=== PATIENT | male | born 1950 | race Caucasian/White ===

== ENCOUNTER 2025-05-13 13:07 | Emergency (ER) | payer MEDICARE, OTHER, SELFPAY ==
[2025-05-13 13:20] VITALS: BP 130/74
[2025-05-13 13:39] LABS: Hematocrit 43.4 % (39.0-52.0); Hemoglobin 14.5 g/dL (13.0-18.0); Mean Corp Hgb Conc. 33.4 g/dL (33.0-37.0); Mean Corpuscular Volume 93.7 fL (80.0-94.0); Nucleated Red Blood Cells % 0 % (-); Platelet Count 153 10^3/uL (130-400); Red Cell Dist. Width 13.2 % (11.5-14.5)
[2025-05-13 14:05] LABS: ALT (SGPT) 19 U/L (0-50); AST (SGOT) 24 U/L (17-59); Albumin 4.3 g/dl (3.5-5.0); Alkaline Phosphatase 81 U/L (38-126); Blood Urea Nitrogen 13 mg/dl (9-20); Calcium 9.5 mg/dl (8.4-10.2); Carbon Dioxide 29 mmol/L (22-30); Chloride 106 mmol/L (98-107); Glucose 99 mg/dl (70-99); Potassium 4.7 mmol/L (3.5-5.1); Sodium 139 mmol/L (135-145); Total Protein 6.6 g/dl (6.3-8.2); Troponin I < 0.012 ng/ml; eGFR > 60.00
--- NOTE | 2025-05-13 17:33 | ED.GENMED ---
History of Present Illness
General
Chief Complaint: Dizziness
Source: patient
Exam Limitations: none
Time Seen by Provider: 05/13/25 17:32
History of Present Illness
History of Present Illness:
75yoM with no significant past medical history presenting with his for evaluation of dizziness. Patient has been having dizzy spells over the past week or so. He describes feeling lightheaded with standing or position changes which resolved
after a few seconds. Patient was driving in the car yesterday afternoon when he started to feel dizzy. He is having difficulty describing this but states it felt like he was going to pass out. He had to test puller the car due to his symptoms. He
has not lost consciousness. Patient was seen by his PCP today regarding his symptoms and was sent to the ED for a CT scan of the head. Patient is currently asymptomatic other than a mild sinus-type headache. He denies any visual changes,
weakness, paresthesias, speech disturbance, chest pain, shortness of breath, vomiting, diarrhea, fevers. Patient takes no prescription medications and denies tobacco use.
Past History
Past History
ED Past Medical History: None
ED Past Surgical History: None
Social History
Personal:
Living: with family
Phy Exam
General Physical Exam
General Presentation: well appearing and no apparent distress
General Skin: warm and dry
General Habitus: normal
General Mental: alert
ENT Exam
ENT Exam: TM's normal and normocephalic
Additional ENT: No carotid bruit
Eye Exam
Eye Exam: PERRL, EOMI, conjunctiva normal and visual schaefer normal
Cardiovascular Exam
Cardiovascular Exam: regular rate/rhythm, no edema and no murmur
Pulmonary Exam
Pulmonary Exam: lungs clear, no respiratory distress, no rales, no crackles, no rhonchi and no wheezing
Neurological Exam
Neurological Exam: alert, CN II-XII intact, no motor deficits, speech normal, normal gait and other (CN 2-12 intact. 5/5 strength in all extremities. Normal finger to nose and heel to dorsey bilaterally. Gait normal.)
[place] Coma Scale
Eye Opening: Spontaneous
Verbal Response: Oriented
Motor Response: Obeys Commands
GCS Total Score: 15
Skin Exam
Skin Exam: normal color and warm/dry
Psychiatric Exam
Psychiatric Exam: normal mood/affect
Course
Orders/Labs/Results
Orders:
Orders
05/13/25 13:24
Electrocardiogram (*1) Urgent
Reason for Study: Chest Pain
EKG- Treatment ONCE
05/13/25 13:31
Complete Blood Count/With Diff Urgent
Comprehensive Metabolic Panel Urgent
Troponin I Urgent
05/13/25 15:10
CT Head W/o Iv Contrast Urgent
Comment:
Reason For Exam: dizzy, lightheaded
Abnormal Lab Results
05/13/25
13:31
WBC 4.6 L 10^3/uL
(4.8-10.8)
RBC 4.63 L 10^6/uL
(4.70-6.10)
MCH 31.3 H pg
(27.0-31.0)
Monocytes % 10.0 H %
(1.7-9.3)
05/13/25 13:31
05/13/25 13:31
Vital Signs
Initial and Last Documented VS:
Initial Vital Signs
Temp Pulse Resp BP Pulse Ox
97.7 F 69 18 130/74 99
05/13/25 13:20 05/13/25 13:20 05/13/25 13:20 05/13/25 13:20 05/13/25 13:20
Last Documented Vital Signs
Temp Pulse Resp BP Pulse Ox
97.7 F 55 20 133/87 98
05/13/25 13:20 05/13/25 18:10 05/13/25 18:10 05/13/25 18:10 05/13/25 18:10
MDM/Problems Addressed
Differential Diagnosis Includes:
75yoM here with intermittent dizziness x 1 week. Lightheaded on position changes but did have an episode of dizziness while in the car yesterday. Sent to ED by PCP for CT scan. No syncope. No CP/SOB. VSS. He is well appearing in no distress. Neuro
exam is non-focal and he is asymptomatic currently. Differential diagnosis includes but is not limited to: orthostatic hypotension, anemia, dehydration, doubt ACS, doubt CVA
Workup initiated in triage. EKG shows NSR without ischemic changes or ectopy. Labs unremarkable including normal hemoglobin, glucose, troponin. CT head negative for acute findings. No indication for hospitalization. Will have patient f/u closely
with his PCP. Strict ED return precautions reviewed. Patient in agreement with plan and he was discharged in stable condition.
*Pulse Oximetry
SaO2: 99
Oxygen Mode of Delivery: Room air
Patient hypoxic: no (99%)
*EKG
Interpreted by ED Provider?: Yes
EKG Intrepretation Date: 05/13/25
Heart Rate: 68
Rate: normal
Rhythm: sinus
[place]: normal axis
Interval: normal interval
QRS Pattern: normal QRS
Ischemia: no ischemia
*Critical Care Note
Total Time (30-74mins, 75-104mins- exclusive of procedures): Not Applicable
ED Attending Note
-
Portions of this chart may have been created with voice recognition software.� Occasional wrong word or��sound alike� substitutions may have occurred due to the inherent limitations of voice recognition software.
Discharge Plan
Departure
Patient Disposition: Home (Routine Discharge)
Date of Disposition: 05/13/25
Time of Disposition: 17:58
Patient with high blood pressure during this ER visit?: No
Discharge Problem:
Dizziness
Instructions: Dizziness
Activity Restrictions/Additional Instructions:
Please follow-up with your family doctor next week. Return to the ER immediately with any new or worsening symptoms.
Interventions
Interventions:
*Risk Screen - Suicide Last Done: 05/13/25 13:20
*General Assessment Last Done: 05/13/25 17:50
*Neglect/Abuse Screening Last Done: 05/13/25 17:50
*ED COVID-19 Vaccine History Last Done: 05/13/25 17:50
*Nursing Disposition Last Done: 05/13/25 18:10
ED- Neurological Assessment Last Done: 05/13/25 17:50
ED Swallowing Screen Last Done: 05/13/25 18:00
Discharge Date and Time
Discharge Date/Time: 05/13/25 18:41
Print Language: MALTESE
[2025-05-13 18:10] VITALS: BP 133/87
== END 2025-05-13 18:41 | disposition home or self-care (01) ==
LOC: EMR 13:07
PROVIDERS: Emergency Medicine; EMERGENCY PHYSICIAN Emergency Medicine; FAMILY PHYSICIAN Family Medicine
DX: R42 Dizziness and giddiness (principal); R51.9 Headache, unspecified
CPT/HCPCS: 99284; 70450; 80053; 84484; 85025; 93005